=== PATIENT | male | born 1985 | race Two or more races ===

== ENCOUNTER 2025-01-25 13:03 | Emergency (ER) | payer SELFPAY ==
[2025-01-25 13:13] VITALS: BP 127/90; PULSE 94; RESP 16; TEMP 98.1; BMI 24.7
[2025-01-25 14:45] LABS: ABSOLUTE IMMATURE GRANULOCYTES 0.02 x10^3/uL (0.0-0.031); BASOPHILS # 0.11 x10^3/uL (0.01-0.08); EOSINOPHIL % 0.3 % (0.8-7.0); EOSINOPHILS # 0.02 x10^3/uL (0.04-0.54); HEMATOCRIT 43.8 % (40.1-51.0); MCHC 34.2 g/dl (32.3-36.5); MEAN CELL VOLUME 97.3 fl (79.0-92.2); MEAN PLT VOLUME 9.2 fl (9.4-12.4); MONOCYTE # 0.48 x10^3/uL (0.30-0.82); MONOCYTE % 7.6 % (5.3-12.2); PLATELET COUNT 322 x10^3/uL (163-337); RDW 12.2 % (12.0-15.6)
[2025-01-25] MEDS: SODIUM CHLORIDE 0.9% 500 ML INFUS.BAG IV ONE (14:49)
[2025-01-25 15:05] LABS: POTASSIUM 4.2 mmol/L (3.5-5.1)
[2025-01-25 15:07] LABS: ALBUMIN 4.4 g/dl (3.4-5.0); BLOOD UREA NITROGEN 5.7 mg/dL (7-18); CALCIUM 10.2 mg/dL (8.5-10.1)
[2025-01-25 15:10] LABS: CREATININE 0.7 mg/dL (0.55-1.3)
[2025-01-25 15:12] LABS: BILIRUBIN,TOTAL 0.5 mg/dL (0.2-1); TOT PROT 8.4 g/dl (6.4-8.2)
[2025-01-25 16:01] LABS: HCV DIAGNOSTIC IN-HOUSE W/RFLX NON-REACTIVE (NONREACTIVE); HIV INTERPRETATION NEGATIVE (NEGATIVE)
== END 2025-01-25 18:04 | disposition home or self-care (01) ==
LOC: JER 13:03
DX: R55 Syncope and collapse (principal); K76.0 Fatty (change of) liver, not elsewhere classified; R00.0 Tachycardia, unspecified
CPT/HCPCS: 36415; 76705-TC; 80053; 84439; 84443; 84484; 85025; 86803; 87389; 93005; 93010; 99285-25